=== PATIENT | female | born 1995 | race Caucasian/White ===

== ENCOUNTER 2024-01-30 14:46 | Inpatient (IN) | payer BC ==
[2024-01-30] MEDS: ELECTROLYTE-148 SOLN 1,000 ML IV SCH (17:00)
[2024-01-30] MEDS ORDERED: OXYTOCIN 30 UNITS in 0.9% NS 30 UNIT/500 ML INFUS.BAG IVPB ONE (17:14)
[2024-01-30] MEDS: OXYTOCIN 30 UNITS in 0.9% NS 30 UNIT/500 ML INFUS.BAG IVPB SCH (17:20)
[2024-01-30 17:27] LABS: BASO % 0.3 % (0-2.0); EOS % 0.8 % (0-4.5); HEMATOCRIT 37.8 % (32.4-45.2); HEMOGLOBIN 12.8 GM/dL (10.7-15.3); LYMPH % 15.6 % (8-40); MCH 29.4 pg (25.7-33.7); MCHC 33.8 g/dl (32.0-36.0); MEAN CELL VOLUME 87.1 fl (80-96); MEAN PLT VOLUME 8.8 fl (7.5-11.1); NEUT % 76.3 % (42.8-82.8); PLATELET COUNT 255 10^3/uL (134-434); RBC 4.34 M/mm3 (3.60-5.2); RDW 14.1 % (11.6-15.6); WHITE BLOOD COUNT 12.6 K/mm3 (4.0-10.0)
[2024-01-30 17:34] LABS: INR 0.93 (0.83-1.09); PROTHROMBIN TIME (PATIENT) 10.7 SEC (9.7-13.0)
[2024-01-30 17:37] LABS: ACTIVATED PTT 33.6 SECONDS (25.2-36.5)
[2024-01-30 17:50] LABS: BLOOD UREA NITROGEN 9.6 mg/dL (7-18); CALCIUM 8.9 mg/dL (8.5-10.1); POTASSIUM 3.9 mmol/L (3.5-5.1)
[2024-01-30 17:55] VITALS: BMI 36.9
[2024-01-30 17:55] LABS: CREATININE 0.4 mg/dL (0.55-1.3)
[2024-01-31] MEDS ORDERED: BUTORPHANOL TARTRATE 2 MG/ML VIAL ONE (02:05)
[2024-01-31] MEDS ORDERED: PROMETHAZINE HCL 25 MG/1 ML VIAL ONE (02:07)
[2024-01-31] MEDS: PROMETHAZINE HCL 25 MG/1 ML VIAL IVPB ONE (02:10)
[2024-01-31] MEDS: BUTORPHANOL TARTRATE 2 MG/ML VIAL IVPUSH ONE (02:10)
[2024-01-31] MEDS ORDERED: FENTANYL/BUPIVACAINE/NS/PF - PCEA - 50 ML DISP.SYRIN EP ONE (04:40)
[2024-01-31] MEDS: FENTANYL/BUPIVACAINE/NS/PF - PCEA - 50 ML DISP.SYRIN EP SCH ×2 (05:15→20:09)
[2024-01-31] MEDS: ELECTROLYTE-148 SOLN 1,000 ML IV SCH (05:30)
[2024-01-31] MEDS ORDERED: NALOXONE HCL 0.4 MG/ML VIAL IVPUSH PRN (06:05)
[2024-01-31 06:08] VITALS: RESP 18
[2024-01-31] MEDS ORDERED: OXYTOCIN 20 UNITS in 0.9% NS 20 UNIT/1,000 ML INFUS.BAG IV ONE (09:12)
[2024-01-31] MEDS: OXYTOCIN 20 UNITS in 0.9% NS 20 UNIT/1,000 ML INFUS.BAG IV SCH (11:00)
[2024-01-31 11:03] LABS: CORD BASE EXCESS -5.1 mmol/L (0-2); CORD HCO3 21.4 mmHg (20-29); CORD pH 7.295 (7.14-7.44)
[2024-01-31 11:05] LABS: CORD BASE EXCESS -5.9 mmol/L (0-2); CORD HCO3 21.4 mmHg (20-29); CORD PCO2 48.5 mmHg (30-78); CORD pH 7.263 (7.14-7.44)
[2024-01-31] MEDS ORDERED: oxyCODONE HCL 5 MG TABLET PO PRN (11:22)
[2024-01-31] MEDS ORDERED: WITCH HAZEL 50% (TUCKS) 40 PAD/JAR PAD TP PRN (11:22)
[2024-01-31] MEDS ORDERED: METHYLERGONOVINE MALEATE 0.2 MG/1 ML AMP IM PRN (11:22)
[2024-01-31] MEDS ORDERED: IBUPROFEN 600 MG TABLET (FP) PO ONE (13:10)
[2024-01-31] MEDS: ACETAMINOPHEN 325 MG TABLET (FP) PO PRN (14:04)
[2024-01-31] MEDS: BENZOCAINE 20% 57 GM BOTTLE TP PRN (14:05)
[2024-01-31 14:12] LABS: POC NITRAZINE POS
[2024-01-31] MEDS: IBUPROFEN 600 MG TABLET (FP) PO PRN (20:36)
[2024-02-01 06:35] LABS: BASO % 0.5 % (0-2.0); EOS % 1.1 % (0-4.5); HEMATOCRIT 28.2 % (32.4-45.2); HEMOGLOBIN 9.5 GM/dL (10.7-15.3); LYMPH % 18.5 % (8-40); MCH 29.5 pg (25.7-33.7); MCHC 33.6 g/dl (32.0-36.0); MEAN CELL VOLUME 87.9 fl (80-96); MEAN PLT VOLUME 8.4 fl (7.5-11.1); MONO % 8.2 % (3.8-10.2); NEUT % 71.7 % (42.8-82.8); PLATELET COUNT 181 10^3/uL (134-434); RBC 3.21 M/mm3 (3.60-5.2); RDW 14.3 % (11.6-15.6); WHITE BLOOD COUNT 14.4 K/mm3 (4.0-10.0)
[2024-02-01] MEDS: PRENATAL VITAMINS W/ FOLIC ACID TABLET (FP) PO SCH (09:09)
[2024-02-01] MEDS: SENNOSIDES/DOCUSATE COMBO (SENNA PLUS) TABLET (UD) PO PRN (21:37)
[2024-02-02 08:32] VITALS: BP 104/59; PULSE 88; TEMP 98
[2024-02-02] MEDS: BENZOCAINE 28 GM HEMORRHOIDAL OINTMENT TP PRN (11:44)
[2024-02-02] MEDS: BISACODYL 10 MG SUPP.RECT RC PRN (11:45)
== END 2024-02-02 12:34 | disposition home or self-care (01) | DRG 807 ==
LOC: JLDR 14:46 → J3W 01-31 13:33
PROVIDERS: ADMIT Obstetrics & Gynecology; ATTEND Obstetrics & Gynecology
PROC: 10E0XZZ Delivery of Products of Conception, External Approach (ICD-10-PCS; principal; 2024-01-31)
PROC: 0KQM0ZZ Repair Perineum Muscle, Open Approach (ICD-10-PCS; 2024-01-31)
DX: O42.92 Full-term premature rupture of membranes, unspecified as to length of time between rupture and onset of labor (principal); Z37.0 Single live birth; O70.1 Second degree perineal laceration during delivery; Z3A.38 38 weeks gestation of pregnancy
CPT/HCPCS: 36415; 36600; 59409; 80048; 82803; 83986-QW; 85025; 85610; 85730; 86780; 86803; 86850; 86900; 86901

== ENCOUNTER 2024-04-29 04:52 | Day surgery (SDC) | payer BC ==
[2024-04-23 17:02] VITALS: BMI 32.3
[2024-04-29] MEDS: BUPIVACAINE HCL/PF 0.5% (5 MG/ML) 30 ML VIAL IJ ONE (11:15)
[2024-04-29] MEDS ORDERED: MIDAZOLAM HCL 2 MG/2 ML SINGLE DOSE VIAL ONE (11:48)
[2024-04-29] MEDS ORDERED: PROPOFOL 20 ML ONE ×3 (11:48→12:36)
[2024-04-29] MEDS ORDERED: oxyCODONE HCL 5 MG TABLET PO PRN (12:06)
[2024-04-29] MEDS ORDERED: IBUPROFEN 400 MG TABLET (FP) PO PRN (12:06)
[2024-04-29] MEDS ORDERED: ONDANSETRON 4 MG/2 ML VIAL IVPUSH PRN (12:06)
[2024-04-29] MEDS: ceFAZolin SODIUM 1 GM VIAL IVPB ONE (12:30)
[2024-04-29] MEDS ORDERED: LIDOCAINE 1%/EPI 1:100000 (20 ML MULTI DOSE VIAL) ONE (12:35)
[2024-04-29] MEDS: LIDOCAINE 1%/EPI 1:100000 (20 ML MULTI DOSE VIAL) IJ ONE ×2 (12:35)
[2024-04-29] MEDS: LACTATED RINGERS SOLUTION 1,000 ML IV SCH (13:12)
[2024-04-29 14:59] VITALS: RESP 18
[2024-04-29] MEDS ORDERED: ACETAMINOPHEN 325 MG TABLET (FP) ONE (15:31)
[2024-04-29] MEDS: ACETAMINOPHEN 325 MG TABLET (FP) PO PRN (15:34)
[2024-04-29 17:09] VITALS: BP 114/58; PULSE 70; TEMP 98.1
== END 2024-04-29 16:10 | disposition home or self-care (01) ==
LOC: JASU-SURG 04:52
PROVIDERS: ATTEND Obstetrics & Gynecology
PROC: 0WQN0ZZ Repair Female Perineum, Open Approach (ICD-10-PCS; principal; 2024-04-29 10:30)
DX: N82.5 Female genital tract-skin fistulae (principal); O70.9 Perineal laceration during delivery, unspecified
CPT/HCPCS: 81025; 86850; 86900; 86901; 88304-TC; 94760